=== PATIENT | male | born 1940 | race Caucasian/White ===

== ENCOUNTER 2023-04-11 06:22 | Day surgery (SDC) | payer MEDICARE, OTHER ==
[~2023-04-11 06:22] MED LIST: EPINEPHrine 1 MG/ML 30 ML MDV IRR SCH; HYDROmorphone 0.5 MG/0.5 ML Syringe IVPUSH PRN; Lactated Ringers 1,000 ML IV SCH; Naloxone 0.4 MG/ML SDV IVPUSH PRN; Ondansetron 4 MG/2 ML SDV IVPUSH PRN; Sodium Chloride 0.9% 10 ML Syringe FLUSH PRN; Sodium Chloride 0.9% 10 ML Syringe FLUSH SCH; fentaNYL 100 MCG/2 ML SDV IVPUSH PRN
[2023-04-11] MEDS ORDERED: Bupivacaine 0.25% 10 ML SDV ONE (06:31)
[2023-04-11] MEDS ORDERED: Propofol 200 MG/20 ML SDV ONE (06:40)
[2023-04-11] MEDS ORDERED: fentaNYL 100 MCG/2 ML SDV ONE (06:41)
[2023-04-11] MEDS ORDERED: ceFAZolin 2 GM Vial ONE ×2 (06:42)
[2023-04-11] MEDS ORDERED: Ketorolac 15 MG/ML SDV ONE (06:45)
[2023-04-11] MEDS ORDERED: Ondansetron 4 MG/2 ML SDV ONE (06:45)
[2023-04-11] MEDS ORDERED: ePHEDrine 50 MG/ML SDV ONE (07:18)
[2023-04-11] MEDS ORDERED: Lactated Ringers 1,000 ML ONE (07:36)
== END 2023-04-11 10:36 | disposition home or self-care (01) ==
LOC: JD.SDS 06:22
PROVIDERS: ATTEND Orthopaedic Surgery
DX: M23.221 Derangement of posterior horn of medial meniscus due to old tear or injury, right knee (principal); M22.41 Chondromalacia patellae, right knee; I12.9 Hypertensive chronic kidney disease with stage 1 through stage 4 chronic kidney disease, or unspecified chronic kidney disease; N18.30 Chronic kidney disease, stage 3 unspecified; K21.9 Gastro-esophageal reflux disease without esophagitis; Z88.1 Allergy status to other antibiotic agents; Z79.899 Other long term (current) drug therapy; Z87.891 Personal history of nicotine dependence
CPT/HCPCS: 29881; 87641; J0171; J0690; J1885; J2405; J2704; J3010; J3490; J7120; 01400; 99100